=== PATIENT | female | born 1980 | race Caucasian/White ===

== ENCOUNTER 2018-06-07 11:51 | Outpatient (REF) | payer OTHER, SELFPAY ==
[2018-06-10 13:38] LABS: Chlamydia Result Negative; GC Result Negative; Specimen Description URINE
== END 2018-06-07 12:11 ==
LOC: LBN 11:51
PROVIDERS: PCP Nurse Practitioner Family; Visit Provider Nurse Practitioner Women's Health
DX: Z11.3 Encounter for screening for infections with a predominantly sexual mode of transmission (principal)
CPT/HCPCS: 87491; 87591

== ENCOUNTER 2019-07-15 20:58 | Outpatient (REF) | payer OTHER, SELFPAY ==
[2019-07-15 16:54] LABS: Anion Gap 10.7 mmol/L (3-11); BUN 15 mg/dL (7-18); CO2 27.3 mmol/L (21.0-32.0); CREATININE 0.77 mg/dL (0.55-1.02); Calcium 8.8 mg/dL (8.5-10.1); Chloride 106 mmol/L (98-107); Glucose 76 mg/dL (74-106); Potassium 3.9 mmol/L (3.5-5.1); Sodium 144 mmol/L (136-145)
[2019-07-15 16:56] LABS: HCT 37.9 % (36.0-46.0); HGB 12.5 g/dL (12.0-15.5); Mean Corpuscular Hemoglobin 31.3 pg (27.0-33.0); Mean Corpuscular Volume 94.8 fL (80-95); Mean Platelet Volume 12.5 fL (8.0-11.0); Platelet Count 193 x1000/uL (130-400); RBC Distribution Width 12.6 % (11.7-14.6)
== END 2019-07-15 21:18 ==
LOC: NCHCN 20:58
PROVIDERS: PCP Nurse Practitioner Family; Visit Provider Nurse Practitioner Family
DX: Z00.00 Encounter for general adult medical examination without abnormal findings (principal); M25.512 Pain in left shoulder
CPT/HCPCS: 80048; 85027

== ENCOUNTER 2021-05-03 01:00 | Outpatient (CLI) | payer OTHER, SELFPAY ==
--- NOTE | 2021-05-03 08:34 | DI.RAD_ITS ---
Exam(s) XR HUMERUS RT EXAM: XR HUMERUS RT CLINICAL HISTORY: locate nexplanon,M79.5. TECHNIQUE: 2D digital imaging was performed. COMPARISON: No exams were available for comparison FINDINGS: BONES: No acute fracture is present. No bony destructive lesion is seen. Visualized portion of elbow and shoulder joints are unremarkable. SOFT TISSUE: Linear radiopacity consistent with Nexplanon device is noted in the anterior subcutaneou s fat at the level of the mid biceps. IMPRESSION: Nexplanon located anterior subcutaneous fat mid biceps level. DATA REPOSITORY: RADIATION DOSE DELIVERED:
== END 2021-05-03 01:20 ==
PROVIDERS: PCP Nurse Practitioner Family; Visit Provider Obstetrics & Gynecology
DX: M79.5 Residual foreign body in soft tissue (principal); Z30.46 Encounter for surveillance of implantable subdermal contraceptive
CPT/HCPCS: 73060

== ENCOUNTER 2021-05-23 03:00 | Outpatient (CLI) | payer OTHER, SELFPAY ==
[2021-05-23 09:31] LABS: Source Nasal/Nares
[2021-05-23 12:50] LABS: COVID-19 PCR Negative (Negative)
== END 2021-05-23 03:01 | disposition home or self-care (01) ==
PROVIDERS: PCP Nurse Practitioner Family; Visit Provider Obstetrics & Gynecology
DX: Z20.822 Contact with and (suspected) exposure to COVID-19 (principal); Z01.818 Encounter for other preprocedural examination
CPT/HCPCS: 87635

== ENCOUNTER 2021-05-23 03:38 | Outpatient (CLI) | payer OTHER, SELFPAY ==
[2021-05-23 08:22] LABS: HGB 12.6 g/dL (11.2-15.7); MCH 31.3 pg (27.0-33.0); MCHC 33.2 % (32.0-36.0); MCV 94.5 fL (80-95); Platelet Count 188 10^3/uL (130-400); RBC 4.02 10^6/uL (3.93-5.22); RDW 12.3 % (11.7-14.6); WBC 3.93 10^3/uL (4.4-10.8)
== END 2021-05-23 03:39 | disposition home or self-care (01) ==
LOC: LBO 03:39
PROVIDERS: PCP Nurse Practitioner Family; Visit Provider Obstetrics & Gynecology
DX: Z01.818 Encounter for other preprocedural examination (principal)
CPT/HCPCS: 36415; 85027; 86850; 86900; 86901

== ENCOUNTER 2021-05-25 06:13 | Day surgery (SDC) | payer OTHER, SELFPAY ==
[2021-05-25 06:28] VITALS: BP 113/78; PULSE 70; RESP 16; TEMP 36.4; O2SAT 100
--- NOTE | 2021-05-25 07:07 | W.ANESPRE ---
General Info Date of Service Date Performed: 05/25/21 Height: 5 ft 6 in Weight: 56.8 kg Body Mass Index (BMI): 20.2 Surgical Procedure: Operation Date: 05/25/21 07:40 Proposed Procedures Side Surgeon p Removal of Nexplanon Sylvia Wright DO Operation Date: 05/25/21 10:25 Proposed Procedures Side Surgeon p Removal of Nexplanon right upper extremity Right Sylvia Wright DO Meds Allergies and Home Medications Allergies Allergy/AdvReac Type Severity Reaction Status Date / Time No Known Allergies Allergy Verified 05/25/21 06:25 Home Medication Medication Instructions Recorded etonogestrel 68 mg subdermal 68 mg SUBDERMAL ONCE #1 implant 06/07/18 implant Current Visit Medications: Current Medications Generic Name Dose Route Start Last Admin Trade Name Freq PRN Reason Stop Dose Admin Ringer's Solution 1,000 mls @ 125 mls/hr 05/25/21 06:00 IV 06/07/21 23:59 INFUSION FLASH IV Miscellaneous Supplies 1 each 05/25/21 06:00 Iv Access IV 06/07/21 23:59 DIRECTED FLASH Sodium Chloride 0 ml 05/25/21 06:00 Normal Saline Flush 10 Ml Syr IV 06/07/21 23:59 PRN PRN Sodium Chloride 0 ml 05/25/21 06:00 Normal Saline 10 Ml Vial IJ 06/07/21 23:59 DIRECTED PRN Sterile Water 0 ml 05/25/21 06:00 Water,Injection,Sterile 10 Ml Vial IJ 06/07/21 23:59 DIRECTED PRN PFSH Active Problems Active Problems: Problem Status Onset Code Dysuria-frequency syndrome 07/29/15 N34.3 Neck mass 08/13/17 R22.1 Supervision of normal 08/21/14 Z34.90 Foreign body (FB) in soft tissue M79.5 Medical History Active Problem List Dysuria-frequency syndrome (Acute 07/29/15) Neck mass (Acute 08/13/17) Supervision of normal (Acute 08/21/14) Foreign body (FB) in soft tissue (Acute) Surgical History Surgical History History of lumpectomy Tobacco Smoking/Tobacco Use Status: Former Tobacco Use Alcohol Alcohol Intake: current Alcohol intake frequency: holidays/special occasions only Substance Use Substance use: Never Substance use type: does not use Prental History History 3 Para 3 Hx # Term Pregnancies Multiple births Hx # Pregnancies Ectopic pregnancies AB induced Hx Number of Living Children AB spontaneous Vital Signs and Lab Results Vital Signs Most Recent Vital Signs in EMR: Most Recent Vital Signs Temp Pulse Resp BP Pulse Ox 36.4 C L 70 16 113/78 100 05/25/21 06:28 05/25/21 06:28 05/25/21 06:28 05/25/21 06:28 05/25/21 06:28 Point of Care Results Point of Care Results: POC- Test(urine) Negative 05/25/21 07:03 Lab Results Blood Type / Crossmatch: Patient ABO/Rh A Positive 05/23/21 08:14 05/23/21 Antibody Screen NEGATIVE 05/23/21 08:14 05/23/21 Complete Blood Count: White Blood Count 3.93 10^3/uL (4.4-10.8) L 05/23/21 08:14 05/23/21 Red Blood Count 4.02 10^6/uL (3.93-5.22) 05/23/21 08:14 05/23/21 Hemoglobin 12.6 g/dL (11.2-15.7) 05/23/21 08:14 05/23/21 Hematocrit 38.0 % (36.0-46.0) 05/23/21 08:14 05/23/21 Platelet Count 188 10^3/uL (130-400) 05/23/21 08:14 05/23/21 Complete Metabolic Panel: No Data to Display Liver Function Panel: No Data to Display Coagulation Panel: No Data to Display Cardiac Panel: No Data to Display Arterial Blood Gas: No Data to Display Venous Blood Gas: No Data to Display Pancreas Panel: No Data to Display Thyroid Panel: No Data to Display Infectious Disease: Coronavirus (COVID-19)(PCR) Negative (Negative) 05/23/21 08:56 05/23/21 Coronavirus 2019 Source Nasal/Nares 05/23/21 08:56 05/23/21 Blood Cultures: No Data to Display Toxicology Panel: No Data to Display Panel: Urine HCG, Qualitative Negative 04/29/21 15:54 04/29/21 Anesthesia Assessment and Plan Anesthesia History Personal History: No History of Anesthesia Complications Family History: No Family History of Anesthesia Complications Exercise Tolerance Exercise Tolerance: Metabolic Equivalents>4 Pertinent Negatives Pertinent Negatives: No Symptoms of GERD, No Major Cardiovascular Symptoms or Complaints, No Major Pulmonary Symptoms or Complaints and No History of CVA/TIA Cardiac & Pulmonary Exam Cardiac Exam: Normal S1/S2 Heart Sounds Pulmonary Exam: Clear Bilateral Breath Sounds Implantable Cardiac Device Does patient have a Pacemaker or an ICD?: No Airway Exam Known Difficult Airway: No Mallampati Class: 1 Mouth Opening: Normal (> 3cm) Thyromental Distance: Greater than 3 cm Neck Range of Motion: Full ROM Neck Circumference: Normal Teeth Condition: Normal Dentition Airway Comments: Right top broken ASA Classification ASA Score: ASA 1 Emergency Case?: No NPO Status NPO Status: NPO Clears >2 hours, Solids >8 hours Status Status: Negative HCG Anesthesia Plan Resuscitation Status: Full Code Anesthesia Technique: MAC Anesthesia Airway Planned: Natural Airway Monitors Used: Standard Monitors
[2021-05-25 07:08] VITALS: BMI 20.2
[2021-05-25] MEDS: Bupivacaine 0.5% Pres-Free 30 ML VIAL (07:57)
--- NOTE | 2021-05-25 08:59 | W.ANESPOSTOP ---
Postoperative Evaluation Date, Time and Location Date Performed: 05/25/21 Time Performed: 09:00 Patient Location: Day Surgery Unit Vital Signs Most Recent Imported Vital Signs: Most Recent Vital Signs Temp Pulse Resp BP Pulse Ox 36.4 C L 70 16 113/78 100 05/25/21 06:28 05/25/21 06:28 05/25/21 06:28 05/25/21 06:28 05/25/21 06:28 Most Recent Manually Entered Vital Signs: Adult Blood Pressure: 111/75 Heart Rate: 77 Respirations: 16 Oxygen Saturation (%): 100 Temperature (C): 36.4 C Pain Score (0-10 Scale): 0 Pain Score Most Recent Pain Score: Most Recent Pain Score Pain Level 0 05/25/21 06:28 Assessment Mental Status: Awake (Alert & Oriented to Patient Baseline) Airway and Respiratory Function: Patent airway with normal (patient baseline) respiratory exam Cardiovascular Function: Hemodynamically Stable Hydration Status: Adequately Hydrated Nausea & Vomiting: No Nausea or Vomiting Pain: Pt. Denies Any Pain Peripheral Nerve Block: Patient did not receive a nerve block
[2021-05-25 09:00] VITALS: BP 111/75; PULSE 77; RESP 16; TEMPC 36.4; O2SAT 100
--- NOTE | 2021-05-25 09:00 | ROE_ITS ---
Date of service: 05/25/21 Time of Service: 09:00 Operative Note Operative Note DATE OF PROCEDURE: 05/25/21 PRE-OP DIAGNOSIS: Nexplanon in situ, right upper extremity, migrated. POST-OP DIAGNOSIS: same PROCEDURE: Surgical excision of Nexplanon from right upper extremity SURGEON: Sylvia Wright ASSISTING SURGEON: Jossie Almodovar ANESTHESIA TYPE: Local By Surgeon Refer to Anesthesia Record PATHOLOGY: none sent COMPLICATIONS: None Patient was transported to: same day Patient's condition: stable Indications: Migrated Nexplanon, nonpalpable in the Findings: Nexplanon in the right upper extremity, 10 cm distal to the axilla Procedure Description: Patient was taken the operating suite. She was placed in dorsal supine position and left upper extremity prepped and. Ultrasound was used to attempt to identify the location of the Nexplanon device. With a ggressive deep palpation the proximal end of the device was palpated, and the site was marked. 25% percent Marcaine was infiltrated into the subcu and subcuticular space. A 2 cm incision was made and with meticulous blunt and sharp dissection over the course of approximately 40 minutes, the area of device was located. In light of fact that there was somewhat dissection, Dr. Almodovar was asked to come to assess for additional surgical exposure. She was able to identify and incised the capsule and remove the Nexplanon device in toto. Patient was shown the device as she was awake. Subcu space was reapproximated with 4-0 Monocryl suture and 4-0 Monocryl used to close the incision in a subcuticular fashion. Skin affix was placed. Patient was taken to the day surgical unit in stable condition. EBL: Minimal Fluids: None Complications: No intraoperative complications. Proximal migration of the Nexplanon device. Pathology: None
[2021-05-25 09:02] VITALS: BP 111/75; PULSE 70; RESP 16; TEMP 36.6; O2SAT 100
== END 2021-05-25 09:21 | disposition home or self-care (01) ==
PROVIDERS: PCP Nurse Practitioner Family; Visit Provider Obstetrics & Gynecology
PROC: (CPT 24200; principal; 2021-05-25 07:30)
DX: T85.628A Displacement of other specified internal prosthetic devices, implants and grafts, initial encounter (principal); Z30.46 Encounter for surveillance of implantable subdermal contraceptive
CPT/HCPCS: 24200

== ENCOUNTER 2021-06-06 12:14 | Outpatient (REF) | payer OTHER, SELFPAY ==
--- NOTE | 2021-06-06 11:20 | PAPFT_PTH ---
PATIENT: Marya Jacobs LOC: [facility] U#:[id number] AGE/SX: 40/F ROOM: RE06/06/[address]: Sylvia Wright DO : 1980 BED: DIS: 06/06/2021 SPEC #: [id number] RECD: 06/06/21 13:04 STATUS: ONI REQ #: [id number] DIANA: 06/06/21 11:[address]: Sylvia Wrgiht DEPT: [facility] Cytology RECD BY: Tati Nowak ENTERED: 06/06/21 13:05 SP TYPE: PAPFT OTHR DR: Allyson Haley Tissues: 1 - CX/ENDOCX FOR PAP SMEARS Procedures: PAP THIN PREP/[facility]VM Screening HPV DNA PROBE Comments: [id number] (CHLAMYDIA/GC)
[2021-06-07 15:45] LABS: Chlamydia Result Negative (Negative); GC Result Negative (Negative)
== END 2021-06-06 12:15 | disposition home or self-care (01) ==
LOC: LBN 12:14
PROVIDERS: PCP Nurse Practitioner Family; Visit Provider Obstetrics & Gynecology
DX: Z12.4 Encounter for screening for malignant neoplasm of cervix (principal); Z11.3 Encounter for screening for infections with a predominantly sexual mode of transmission; Z11.51 Encounter for screening for human papillomavirus (HPV)
CPT/HCPCS: 87491; 87591; 88142; 87624

== ENCOUNTER 2021-09-13 16:44 | Outpatient (REF) | payer OTHER, SELFPAY ==
[2021-09-13 19:12] LABS: Abs Immature Grans 0.02 10^3/uL (0.0-0.06); Absolute Basophil Count 0.03 10^3/uL (0.0-0.2); Absolute Eosinophil Count 0.03 10^3/uL (0.0-0.7); Absolute Lymphocyte Count 1.29 10^3/uL (1.2-3.4); Absolute Monocyte Count 0.43 10^3/uL (0.1-0.8); Absolute Neutrophil Count 5.79 10^3/uL (1.2-6.7); Basophils % 0.4; Eosinophils % 0.4; HCT 39.5 % (36.0-46.0); HGB 12.9 g/dL (11.2-15.7); Immature Grans % 0.3; MCH 30.9 pg (27.0-33.0); MCHC 32.7 % (32.0-36.0); MCV 94.5 fL (80-95); Monocytes % 5.7; Neutrophils % 76.2; Nucleated RBC 0 %; Platelet Count 212 10^3/uL (130-400); RBC 4.18 10^6/uL (3.93-5.22); RDW 12.4 % (11.7-14.6); RDW-SD 43.3 fL; WBC 7.59 10^3/uL (4.4-10.8)
[2021-09-13 19:30] LABS: ESR < 1 mm/hr (0-20)
[2021-09-13 19:50] LABS: Calculated LDL 119 mg/dL (<100); Cholesterol 185 mg/dL (<200); HDL Cholesterol 58 mg/dL (40-60); Triglyceride 40 mg/dL (<150)
[2021-09-15 10:05] LABS: HIV-1/2 Ag & Ab Screen Negative (Negative)
[2021-09-15 10:25] LABS: Hepatitis C Ab w Rflx HCV PCR Negative (Negative)
== END 2021-09-13 16:45 | disposition home or self-care (01) ==
LOC: NCHCN 16:44
PROVIDERS: PCP Nurse Practitioner Family; Visit Provider Family Medicine
DX: Z00.00 Encounter for general adult medical examination without abnormal findings (principal); D70.9 Neutropenia, unspecified; Z11.4 Encounter for screening for human immunodeficiency virus [HIV]; Z11.59 Encounter for screening for other viral diseases; Z13.220 Encounter for screening for lipoid disorders
CPT/HCPCS: 80061; 85652; 86803; 87389; 85025

== ENCOUNTER 2021-10-24 01:25 | Outpatient (CLI) | payer OTHER, SELFPAY ==
--- NOTE | 2021-10-24 | DI.RAD_ITS ---
Exam(s) XR LUMBAR SPINE COMPLETE EXAM: XR LUMBAR SPINE COMPLETE CLINICAL HISTORY: CHRONIC LOW BACK PAIN, M54.59. TECHNIQUE: 2D digital imaging was performed. COMPARISON: No exams were available for comparison FINDINGS: BONES: No fracture or destructive lesion. Vertebral bodies are normal in height. Minimal disc osteop hytes.. No facet hypertrophy identified. DISKS: Intervertebral disc spaces are maintained. ALIGNMENT: Lumbar spinal alignment is within normal limits. SOFT TISSUE: Normal. IUD. IMPRESSION: Unremarkable radiographs of the lumbar spine. DATA REPOSITORY: RADIATION DOSE DELIVERED:
== END 2021-10-24 01:45 ==
PROVIDERS: PCP Nurse Practitioner Family; Visit Provider Nurse Practitioner Family
DX: M54.59 Other low back pain (principal); G89.29 Other chronic pain
CPT/HCPCS: 72110

== ENCOUNTER 2021-12-26 18:36 | Emergency (ER) | payer OTHER, SELFPAY ==
[2021-12-26 18:38] VITALS: BP 135/80; PULSE 79; RESP 16; TEMP 36.8; O2SAT 100
--- NOTE | 2021-12-26 18:45 | DI.RAD_ITS ---
Exam(s) XR TOE LT FIFTH EXAM: XR TOE LT FIFTH CLINICAL HISTORY: pain s/p kicking chair Sunday. TECHNIQUE: 2D digital imaging was performed. Three views COMPARISON: No exams were available for comparison FINDINGS: BONES: There is an oblique nondisplaced fracture through the mid through distal shaft of the proxima l phalanx of the 5th toe. There is no visible extension to the articular surface. No bony destructi ve lesion is seen. JOINTS: No dislocation present. SOFT TISSUE: Lateral soft tissue swelling. IMPRESSION: Fracture proximal phalanx 5th toe DATA REPOSITORY: RADIATION DOSE DELIVERED:
--- NOTE | 2021-12-26 18:54 | ED.GENADUL_ITS ---
Discharge Plan Disposition Patient Disposition: HOME Condition: Stable Discharge Details Clinical Impression: Closed fracture of fifth toe of left foot Primary Care Provider: Allyson Haley ED Provider: Des Sanchez Home Meds and New Rx's Prescriptions: Continued Mirena 20 mcg/24 hours (7 yrs) 52 mg intrauterine device 1 insert intrauterine ONCE Rx Instructions: as a single dose ibuprofen 800 mg tablet 800 mg PO Q8H PRNQty: 30 1RF Discharge Instructions Additional Instructions: You have a small break in the bone of the small toe that should heal on it's own with time if no improvement in pain in 2 weeks follow up with your primary care provider if you feel more ill or have severe worsening pain return to the emergency department Medical Decision Making 41 yo female who denies chronic medical issues comes in with left small toe pain. She states she was walking after her son Sunday and hit her left small toe on a chair, no falls or head trauma. She states she had pain in the small toe and the next day was in a public restroom, trying not to bear weight on the toe and shifted her weight and felt a pop in the left small toe area. She states her pain is mildly better today but is leaving town later this week so wanted it evaluated. She has no pain anywhere other than the left small toe area. She has full rom of the toes and ankles. She has normal sensation and pulses. She has contusions of the left small toe. She Has tenderness to the toe, no pain over the metatarsals. Suspect contusion vs fracture, will obtain xray of the toe to further evaluate. xray shows nondisplaced fracture of left small toe on my read. Discussed with her and she declines post op shoe or walking boot. Discussed this should heal without intervention, if still in pain in two weeks to follow up with pcp Differential Diagnosis Differential Diagnosis: contusion, fracture, sprain, strain Imaging Data Radiologic Study: Attestation: I personally reviewed and interpreted this imaging study as follows: Imaging: X-Ray My impression: fracture 5th toe, no significant displacement HPI General Mode of arrival: ambulatory . Date/Time Provider Initiated Documentation: 12/26/21 18:45 . Limitations to Documentation: no limitations . Information obtained by: patient . History of Present Illness 41 year old F presents to the emergency department with the chief complaint of left small toe pain, described as moderate, Quality is described as aching, Patient started experiencing this day(s) (2) and it has been constant. Rest improves symptom(s), Movement worsens symptoms (walking on her foot) . Patient notes no other symptoms.. Patient did receive the following treatments prior to arrival, none Related Data Home Medications Medication Instructions Recorded Confirmed ibuprofen 800 mg tablet 800 mg PO Q8H PRN #30 tabs 05/25/21 12/26/21 levonorgestrel 20 mcg/24 hours (7 1 insert intrauterine ONCE 06/06/21 12/26/21 yrs) 52 mg intrauterine device (Mirena) Previous Rx's Medication Instructions Recorded ibuprofen 800 mg tablet 800 mg PO Q8H PRN #30 tabs 05/25/21 Allergies Allergy/AdvReac Type Severity Reaction Status Date / Time No Known Allergies Allergy Verified 12/26/21 18:43 General Stated Complaint: Orthopedic ROSALIA: 4 PFSH All Active Problems (Updated 12/26/21 @ 19:37 by Des Sanchez MD) Closed fracture of fifth toe of left foot (Acute) Family history of colorectal cancer (Acute) Father - rectal cancer at 58. Screening for colon cancer (Acute) Medical History (Updated 12/26/21 @ 19:37 by Des Sanchez MD) Abnormal Pap smear of vagina Dysuria-frequency syndrome (07/29/15) Foreign body (FB) in soft tissue IUD surveillance Neck mass (08/13/17) Neutropenia Stress incontinence Surgical History History of lumpectomy Social History Smoking/Tobacco Use Status: Former Tobacco Use Quit Date: 07/09/99 Smoking risk assessment performed?: Yes Alcohol Intake: current Alcohol Intake frequency: holidays/special occasions only Drug use: Never Substance use type: does not use Do you feel safe at home: Yes Do you feel safe in your relationship?: Yes Female Reproductive History Menstrual control method: implanted History History 3 Para 3 Hx # Term Pregnancies Multiple births Hx # Pregnancies Ectopic pregnancies AB induced Hx Number of Living Children AB spontaneous Exam Const General: no acute distress Orientation: alert HENMT Head: normal to inspection Ears: external ears normal General nose exam: external nose normal Mouth: moist mucous membranes Eyes General: appearance normal, both eyes and all related structures Neck Neck: normal visual inspection Resp Effort & Inspection: normal respiratory effort and able to speak in complete sentences Cardio Rate: regular rate Skin General skin exam: no rashes or lesions noted Neuro General: patient alert and patient oriented x3 Extrem General: capillary refill normal Course Vital Signs Vital signs: Vital Signs Temperature 36.8 C 12/26/21 18:38 Pulse 79 12/26/21 18:38 Respiratory Rate 16 12/26/21 18:38 Blood Pressure 135/80 12/26/21 18:38 Pulse Oximetry 100 12/26/21 18:38 Temperature 36.8 C 12/26/21 18:38 Temperature Source Temporal Artery Scan 12/26/21 18:38 Pulse 79 12/26/21 18:38 Respiratory Rate 16 12/26/21 18:38 Respiratory Effort Non-Labored 12/26/21 18:41 Blood Pressure 135/80 12/26/21 18:38 Blood Pressure Position Sitting 12/26/21 18:38 Pulse Oximetry 100 12/26/21 18:38 Oxygen Delivery Method Room Air 12/26/21 18:38 Oxygen Flow Rate 0 12/26/21 18:38 Pain Level 2 12/26/21 18:41
--- NOTE | 2021-12-26 19:50 | DI.VRAD_ITS ---
PROCEDURE INFORMATION: Exam: XR Left Toe(s) Exam date and time: 12/26/2021 7:04 PM Age: 41 years old Clinical indication: Other: Pain, S/P kicking chair Sunday TECHNIQUE: Imaging protocol: Radiologic exam of the Left toes. Views: Minimum 2 views. COMPARISON: No relevant prior studies available. FINDINGS: Bones/joints: A dorsoplaner view of the foot is submitted with coned-down dorsoplantar and oblique views of the left 5th digit. There is an acute oblique essentially nondisplaced fracture through mid-distal shaft of the proximal phalanx of the 5th digit. No additional acute fracture or dislocation is seen. Soft tissues: There is soft tissue swelling through the 5th digit and along the lateral margin of the foot. No radiopaque foreign body is demonstrated. IMPRESSION: Acute, essentially nondisplaced, oblique fracture through the mid-distal shaft of the proximal phalanx of the 5th digit of the left foot. Dictated and Authenticated by: Biju Graham MD. Ordering:SIMEON Nunes MD
== END 2021-12-26 20:08 | disposition home or self-care (01) ==
PROVIDERS: Emergency Provider Emergency Medicine; PCP Nurse Practitioner Family
DX: S92.592A Other fracture of left lesser toe(s), initial encounter for closed fracture (principal); W22.09XA Striking against other stationary object, initial encounter
CPT/HCPCS: 99283; 73660

== ENCOUNTER 2022-12-07 17:39 | Outpatient (CLI) | payer OTHER, SELFPAY ==
--- NOTE | 2022-12-07 17:45 | DI.RAD_ITS ---
Exam(s) XR LUMBAR SPINE COMPLETE EXAM: XR LUMBAR SPINE COMPLETE CLINICAL HISTORY: evaluate pathology. TECHNIQUE: 2D digital imaging was performed. COMPARISON: X-rays 10/24/2021 FINDINGS: Five views No evidence of fractures nor listhesis. Minimal disc space narrowing L4-5 and L5-S1 levels. No scol iosis. No obvious facet arthropathy. SI joints unremarkable. No osseous. Bone density normal. IU D noted in the pelvis. IMPRESSION: Minimal findings as above. DATA REPOSITORY: RADIATION DOSE DELIVERED:
--- NOTE | 2022-12-07 18:31 | DI.VRAD_ITS ---
PROCEDURE INFORMATION: Exam: XR Lumbosacral Spine Exam date and time: 12/07/2022 6:08 PM Age: 42 years old Clinical indication: Pain; Other: Evaluate pathology TECHNIQUE: Imaging protocol: Radiologic exam of the lumbosacral spine. Views: 4 or 5 views. COMPARISON: CR XR LUMBAR SPINE COMPLETE 10/24/2021 8:16 AM FINDINGS: Tubes, catheters and devices: Intrauterine device is noted in the pelvis. Bones/joints: Normal. No acute fracture. Normal alignment. Soft tissues: Unremarkable. IMPRESSION: Unremarkable lumbar spine Dictated and Authenticated by: Je Osorio MD. Ordering:YINKA José MD
== END 2022-12-07 17:59 ==
PROVIDERS: PCP Nurse Practitioner Family; Visit Provider Nurse Practitioner Family
DX: M54.9 Dorsalgia, unspecified (principal)
CPT/HCPCS: 72110

== ENCOUNTER 2022-12-07 17:57 | Outpatient (REF) | payer OTHER, SELFPAY ==
[2022-12-07 20:43] LABS: Abs Immature Grans 0.01 10^3/uL (0.0-0.06); Absolute Basophil Count 0.05 10^3/uL (0.0-0.2); Absolute Eosinophil Count 0.06 10^3/uL (0.0-0.7); Absolute Lymphocyte Count 1.58 10^3/uL (1.2-3.4); Absolute Monocyte Count 0.38 10^3/uL (0.1-0.8); Absolute Neutrophil Count 3.07 10^3/uL (1.2-6.7); Eosinophils % 1.2; HCT 38.6 % (36.0-46.0); HGB 12.9 g/dL (11.2-15.7); Immature Grans % 0.2; Lymphocytes % 30.7; MCH 31.3 pg (27.0-33.0); MCHC 33.4 % (32.0-36.0); MCV 94 fL (80-95); Monocytes % 7.4; Neutrophils % 59.5; Platelet Count 201 10^3/uL (130-400); RBC 4.12 10^6/uL (3.93-5.22); RDW-SD 41.4 fL; WBC 5.15 10^3/uL (4.4-10.8)
[2022-12-07 21:02] LABS: ESR < 1 mm/hr (0-20)
[2022-12-07 21:05] LABS: Bilirubin Negative (Negative); Blood Small (Negative); Clarity Clear (Clear); Glucose Negative (Negative); Ketones Negative (Negative); Leukocyte Esterase Negative (Negative); Nitrite Negative (Negative); Urobilinogen 0.2 mg/dL (Up to 0.2)
[2022-12-07 21:17] LABS: Bacteria Few HPF (Negative); C & S Indicated? No; Casts Negative LPF (Negative); Crystals Negative HPF (Negative); Epithelial Cells Rare HPF (Negative); Mucus Negative (Negative); RBC 0-2 HPF (0-2)
[2022-12-08 18:00] LABS: CRP, High Sensitivity <0.34 mg/L (See Note)
== END 2022-12-07 17:58 | disposition home or self-care (01) ==
LOC: LBN 17:57
PROVIDERS: PCP Nurse Practitioner Family; Visit Provider Nurse Practitioner Family
DX: N39.0 Urinary tract infection, site not specified (principal); R39.89 Other symptoms and signs involving the genitourinary system; M54.59 Other low back pain
CPT/HCPCS: 85652; 86141; 81003; 81015; 85025

== ENCOUNTER → 2023-06-06 02:15 | Outpatient (CLI) | payer OTHER, SELFPAY ==
--- NOTE | 2023-06-06 08:14 | DI.MAMMO_ITS ---
Exam(s) MAMMO SCREENING EXAM: MAMMO SCREENING CLINICAL HISTORY: SCREENING,Z12.39 TECHNIQUE: Bilateral full field digital CC and MLO mammographic images were obtained with 3D tomosyn thesis and utilizing computer aided detection (CAD). COMPARISON: This is a baseline examination. FINDINGS: Masses/Architectural Distortion: There are 2 partially obscured well-circumscribed nodules in the upp er right breast on the MLO view. The larger measuring 2.6 cm. The smaller measuring 1.2 cm. There are no areas of architectural distortion. Microcalcifications: No suspicious pleomorphic-type are seen. Skin Thickening/Nipple Retraction: None. IMPRESSION: 1. Well-circumscribed nodules in the upper right breast. Spot compression views are requested for fu rther evaluation. 2. Complete right breast ultrasound should also be obtained at that time. BI-RADS Category 0 - Assessment Incomplete: Need additional imaging evaluation Breast Density - Category D - Extremely dense Breast density category C or D implies that the patient has dense breast tissue. Dense breast tissue is very common and is not abnormal but dense breast tissue can make it harder to find cancer on a ma mmogram. Also, dense breast tissue may increase their breast cancer risk. This information about the result of the mammogram report was provided to the patient to raise their awareness. Use this report when you speak with the patient about their risks for breast cancer, which includes their family hist ory. At that time, you may recommend for more screening tests (Ultrasound or MRI) as they might be us eful based on their risk. A negative radiographic report should not delay biopsy if a dominant or clinically suspicious mass is present. Up to ten percent of cancers are not identified on mammography. A negative report may reinforce clinical impression. Adenosis and dense breasts may obscure an underlying neoplasm. False positive reports average 6 to 10%. Patient will receive a letter notifying them of these results.
== END ==
PROVIDERS: PCP Nurse Practitioner Family; Visit Provider Family Medicine
DX: Z12.31 Encounter for screening mammogram for malignant neoplasm of breast (principal)
CPT/HCPCS: 77063; 77067

== ENCOUNTER → 2023-06-13 01:55 | Outpatient (CLI) | payer OTHER, SELFPAY ==
--- NOTE | 2023-06-13 | DI.MAMMO_ITS ---
Exam(s) MG MAMMO SCREEN CALL BACK UNI US BREAST RT COMPLETE EXAM: MG MAMMO SCREEN CALL BACK UNI-AND COMPLETE RIGHT BREAST ULTRASOUND CLINICAL HISTORY: NODULES UPPER RT BREAST R92.8 ABNL MAMMO. TECHNIQUE: Unilateral spot mammographic images obtained with 3D tomosynthesisand utilizing computer aided detection (CAD). . Complete RIGHT breast Ultrasound was also performed, including all 4 quadrants, the retroareolar champ on, and the ipsilateral axilla. COMPARISON: Prior mammograms were reviewed. This additional imaging was performed due to findings described on the recent screening mammogram of 06/06/2023. FINDINGS: DIAGNOSTIC MAMMOGRAM: Additional mammographic views performed todaydo not dissipate nodules. We proceeded with ultrasound COMPLETE RIGHT BREAST ULTRASOUND: Ultrasound performed today reveals multiple cysts throughout the right breast involving all quadrants these correspond to the findings on the mammogram and indeed there are numerous additional cysts and microcysts visualized on ultrasound examination today. Largest of these measures 2.5 cm, located in feriorly at approximately 8 o'clock position.. Most importantly, there are no solid lesions seen. Scanning of the ipsilateral axilla reveals no significant adenopathy. IMPRESSION: 1. Cyst in the right breast which correspond to the findings on the mammogram. No solid lesions on ultrasound Appropriate follow-up as discussed by myself with the patient today is to perform bilateral breast ul trasound examination at the time for next yearly mammogram, with earlier imaging if a self detected b reast change is noted.. The patient was informed of these findings and recommendations by myself prior to leaving the departm ent today. BI-RADS Category 2 - Benign Findings Breast Density - Category D - Extremely dense Breast density Category C or D implies that the patient has dense breast tissue. Dense breast tissue can make it harder to find cancer on a mammogram. Dense breast tissue is also associated with an incr eased risk of breast cancer. This information about the result of the mammogram report was provided to the patient to raise their awareness. Use this report when you speak with the patient about their risks for breast cancer, which includes their family history. At that time, you may recommend additional screening tests (Ultrasoun d or MRI) as these tests may add significant information. A negative radiographic report should not delay biopsy if a dominant or clinically suspicious mass is present. Up to ten percent of cancers are not identified on mammography. A negative report may reinforce clinical impression. Adenosis and dense breasts may obscure an underlying neoplasm. False positive reports average 6 to 10%. Patient will receive a letter notifying them of these results.
== END ==
PROVIDERS: PCP Nurse Practitioner Family; Visit Provider Family Medicine
DX: Z12.31 Encounter for screening mammogram for malignant neoplasm of breast (principal); R92.8 Other abnormal and inconclusive findings on diagnostic imaging of breast
CPT/HCPCS: 76642; 77063; 77067

== ENCOUNTER 2024-10-24 00:14 | Outpatient (CLI) | payer OTHER, SELFPAY ==
--- NOTE | 2024-10-24 15:29 | DI.MAMMO_ITS ---
Exam(s) MAMMO SCREENING EXAM: MAMMO SCREENING CLINICAL HISTORY: Z12.31 Screening. TECHNIQUE: Bilateral full field digital CC and MLO mammographic images were obtained with 3D tomosyn thesis and utilizing computer aided detection (CAD). COMPARISON: Prior mammograms were reviewed. FINDINGS: Fibroglandular tissue pattern is again noted be very dense. In the right breast there are 2 dominant well-defined nodules measuring 2.6 x 2.2 and 4.2 x 2.8 cm. These have increased in size from previous. Ultrasound recommended. Suggestion of smaller nodules in left breast, difficult to delineate from the dense overlying fibrogl andular tissue. Benign microcalcifications noted. No malignant-appearing microcalcification groups. There is no significant architectural distortion nor skin thickening-retraction. IMPRESSION: Extremely dense bilateral fibroglandular tissue. At least 2 nodules as described above in the right breast and possible smaller nodules in left breast. Bilateral complete breast ultrasound recommended . BI-RADS Category 0 - Incomplete: Need additional imaging evaluation Breast Density - Category D - Extremely dense Breast density Category C or D implies that the patient has dense breast tissue. Dense breast tissue can make it harder to find cancer on a mammogram. Dense breast tissue is also associated with an incr eased risk of breast cancer. This information about the result of the mammogram report was provided to the patient to raise their awareness. Use this report when you speak with the patient about their risks for breast cancer, which includes their family history. At that time, you may recommend additional screening tests (Ultrasoun d or MRI) as these tests may add significant information. A negative radiographic report should not delay biopsy if a dominant or clinically suspicious mass is present. Up to ten percent of cancers are not identified on mammography. A negative report may reinforce clinical impression. Adenosis and dense breasts may obscure an underlying neoplasm. False positive reports average 6 to 10%. Patient will receive a letter notifying them of these results.
== END 2024-10-24 00:34 ==
LOC: DI 00:15
PROVIDERS: Visit Provider Nurse Practitioner Family
DX: Z12.31 Encounter for screening mammogram for malignant neoplasm of breast (principal); R92.343 Mammographic extreme density, bilateral breasts
CPT/HCPCS: 77063; 77067

== ENCOUNTER 2025-06-26 16:41 | Outpatient (REF) | payer OTHER, SELFPAY ==
[2025-06-26 21:11] LABS: Glucose Negative (Negative)
[2025-06-26 21:36] LABS: WBC >50 HPF (0-5)
== END 2025-06-26 16:42 | disposition home or self-care (01) ==
LOC: NCHCN 16:41
PROVIDERS: PCP Family Medicine; Visit Provider Family Medicine
DX: R39.9 Unspecified symptoms and signs involving the genitourinary system (principal)
CPT/HCPCS: 87077; 81003; 81015; 87086; 87186